=== PATIENT | male | born 1990 | race Caucasian/White ===

== ENCOUNTER 2022-12-09 22:13 | Emergency (ER) | payer SELFPAY ==
[2022-12-09] MEDS ORDERED: Tetracaine HCl/PF 0.5% 4 ML Bottle EYEBOTH ONE (23:14)
[2022-12-09] MEDS ORDERED: Acetaminophen 325 MG Tab PO ONE (23:15)
[2022-12-09] MEDS ORDERED: Ibuprofen 400 MG Tab PO ONE (23:15)
[2022-12-09] MEDS ORDERED: Erythromycin Base 0.5% Ophth Oint 1 GM Tube EYEBOTH ONE (23:37)
== END 2022-12-09 23:55 | disposition home or self-care (01) ==
LOC: MW.ED 22:13
DX: H57.89 Other specified disorders of eye and adnexa (principal)
CPT/HCPCS: 99283; A9270; J3490